=== PATIENT | male | born 1980 | race Caucasian/White ===

== ENCOUNTER 2024-06-29 23:30 | Emergency (ER) | payer SELFPAY ==
[~2024-06-29] VITALS: Ht 165.1 cm; Wt 86.0 kg
[~2024-06-29 23:30] MED LIST: ADVAIR DISK1 IN; ADVAIR DISK1 INH; ALBUTEROL SUL0.083 % IN; HUMALOG KW100 UNIT/M; JARDIANCE25 MG PO; LANTUS SOL100 UNIT/M SC; METFORMIN HCL1000 MG PO; SEROQUEL50 MG PO; STERAPRED DS10 MG PO; SYMBICORT 80-4.5MCG IN; VENTOLIN HFA108 MCG; VENTOLIN HFA108 MCG IN
[2024-06-30] MEDS ORDERED: methylPREDNISolone SODIUM SUCC 125 MG/2 ML SDV IV STA (00:13)
[2024-06-30] MEDS ORDERED: IPRATROPIUM-Albuterol 0.5MG-2.5MG/3 ML NEB ONE (00:15)
[2024-06-30] MEDS ORDERED: ALBUTEROL SULFATE 2.5 MG VIAL IN ONE (00:15)
[2024-06-30 00:31] VITALS: BP 105/71
[2024-06-30 00:58] LABS: BASO% 0.6 % (0-3); EOS% 5.2 % (0-8); HEMATOCRIT 51.5 % (39.0-50.0); HEMOGLOBIN 17.8 g/dl (14.0-18.0); IMMATURE GRANULOCYTES 1.9 % (0.0-5.0); LYMPH% 29.3 % (15-41); MEAN CORPUSCULAR HGB 29.7 pG CALC (26.0-32.0); MEAN CORPUSCULAR HGB CONC 34.6 g/dL CAL (32.0-36.0); MONO% 7.5 % (2-13); NEUT# 7.73 thou/uL (1.82-7.42); NEUT% 55.5 % (42-76); RED BLOOD COUNT 5.99 mill/uL (4.70-6.10); RED CELL DISTRI WIDTH 12.4 % (11.5-15.5)
[2024-06-30 01:01] VITALS: BP 119/71
[2024-06-30] MEDS ORDERED: PREDNISONE50 MG PO (01:21)
[2024-06-30 01:28] VITALS: BP 119/71
== END 2024-06-30 01:28 | disposition home or self-care (01) | DRG 203 ==
LOC: ED 23:30
PROVIDERS: Family Medicine
DX: J45.901 Unspecified asthma with (acute) exacerbation (principal); E11.9 Type 2 diabetes mellitus without complications; Z79.84 Long term (current) use of oral hypoglycemic drugs; Z79.4 Long term (current) use of insulin; Z72.0 Tobacco use; Z20.822 Contact with and (suspected) exposure to COVID-19

== ENCOUNTER 2024-07-06 21:22 | Emergency (ER) | payer SELFPAY ==
[~2024-07-06] VITALS: Ht 165.1 cm; Wt 86.0 kg
[~2024-07-06 21:22] MED LIST changes: +PREDNISONE50 MG PO
[2024-07-06 21:56] LABS: BASO% 0.2 % (0-3); EOS% 0.5 % (0-8); HEMOGLOBIN 17.2 g/dl (14.0-18.0); IMMATURE GRANULOCYTES 0.5 % (0.0-5.0); LYMPH% 18.3 % (15-41); MEAN CELL VOLUME 87.2 fL CALC (80.0-100.0); MEAN CORPUSCULAR HGB 29.4 pG CALC (26.0-32.0); MEAN CORPUSCULAR HGB CONC 33.7 g/dL CAL (32.0-36.0); MONO% 7.7 % (2-13); NEUT# 10.07 thou/uL (1.82-7.42); NEUT% 72.8 % (42-76); RED BLOOD COUNT 5.85 mill/uL (4.70-6.10)
[2024-07-06 22:08] LABS: ALBUMIN 4.7 g/dL (3.2-5.0); ALKALINE PHOSPHATASE 59 u/l (38-126); ANION GAP 16 (6-22 (CALC)); BUN 32 mg/dL (9-20); BUN/CREATININE RATIO 27 (12-20 (CALC)); CARBON DIOXIDE 22 mmol/l (22-30); CHLORIDE 105 mmol/l (95-108); CREATININE 1.2 mg/dL (0.7-1.3); ESTIMATED GFR 76 ML/MIN (>=90 (CALC)); ETHYL ALCOHOL 0 mg/dl (0-30); MAGNESIUM 2.3 mg/dL (1.6-2.3); POTASSIUM 3.9 mmol/l (3.5-5.1); SGOT/AST 43 u/l (17-59); SODIUM 138 mmol/l (137-146); TOTAL PROTEIN 7.7 g/dL (6.3-8.2)
[2024-07-06 22:10] LABS: BILIRUBIN, TOTAL 2.3 mg/dL (0.2-1.3)
[2024-07-06 22:30] LABS: URINE BLOOD DIPSTICK Negative (NEGATIVE); URINE GLUCOSE - DIPSTICK 250 mg/dL (NEGATIVE); URINE KETONE >=160 mg/dL (NEGATIVE); URINE LEUK ESTERASE Negative (NEGATIVE); URINE NITRITE - DIPSTICK Negative (Negative); URINE PH 5.5 (4.5-8.0); URINE PROTEIN - DIPSTICK Negative (NEG-TRACE); URINE SPECIFIC GRAVITY >=1.030; URINE UROBILINOGEN - DIPSTICK 0.2 E.U./dL (0.2)
[2024-07-06 22:31] LABS: URINE COLOR Yellow
[2024-07-07 00:43] VITALS: BP 109/72
== END 2024-07-07 00:24 | DRG 880 ==
LOC: ED 21:22
PROVIDERS: Family Medicine
DX: R45.851 Suicidal ideations (principal); F15.10 Other stimulant abuse, uncomplicated; D72.829 Elevated white blood cell count, unspecified; E11.9 Type 2 diabetes mellitus without complications; J45.909 Unspecified asthma, uncomplicated; Z79.84 Long term (current) use of oral hypoglycemic drugs; Z79.4 Long term (current) use of insulin; Z72.0 Tobacco use
CPT/HCPCS: S0166

== ENCOUNTER 2024-07-18 11:17 | Emergency (ER) | payer SELFPAY ==
[~2024-07-18] VITALS: Ht 165.1 cm; Wt 90.9 kg
[2024-07-18 11:48] LABS: BASO% 0.8 % (0-3); EOS% 2.1 % (0-8); HEMOGLOBIN 17.7 g/dl (14.0-18.0); IMMATURE GRANULOCYTES 0.8 % (0.0-5.0); LYMPH% 28.9 % (15-41); MEAN CELL VOLUME 83.7 fL CALC (80.0-100.0); MEAN CORPUSCULAR HGB 29.1 pG CALC (26.0-32.0); MEAN CORPUSCULAR HGB CONC 34.7 g/dL CAL (32.0-36.0); MONO% 10.3 % (2-13); NEUT# 4.45 thou/uL (1.82-7.42); NEUT% 57.1 % (42-76); RED BLOOD COUNT 6.09 mill/uL (4.70-6.10); RED CELL DISTRI WIDTH 11.7 % (11.5-15.5)
[2024-07-18] MEDS ORDERED: ONDANSETRON HCl 4 MG/2 ML SDV IV ONE (11:50)
[2024-07-18] MEDS ORDERED: SODIUM CHLORIDE 0.9% 1,000 ML IV ONE (11:55)
[2024-07-18 12:11] LABS: ALBUMIN 4.9 g/dL (3.2-5.0); ALKALINE PHOSPHATASE 64 u/l (38-126); ANION GAP 14 (6-22 (CALC)); BILIRUBIN, TOTAL 1.5 mg/dL (0.2-1.3); BUN 21 mg/dL (9-20); BUN/CREATININE RATIO 16 (12-20 (CALC)); CARBON DIOXIDE 24 mmol/l (22-30); CHLORIDE 102 mmol/l (95-108); CREATININE 1.3 mg/dL (0.7-1.3); ESTIMATED GFR 69 ML/MIN (>=90 (CALC)); ETHYL ALCOHOL 0 mg/dl (0-30); POTASSIUM 4.1 mmol/l (3.5-5.1); SGOT/AST 50 u/l (17-59); SODIUM 136 mmol/l (137-146); TOTAL PROTEIN 7.9 g/dL (6.3-8.2)
[2024-07-18 14:28] VITALS: BP 141/103
== END 2024-07-18 14:29 | DRG 880 ==
LOC: ED 11:17
PROVIDERS: Family Medicine
DX: R45.851 Suicidal ideations (principal); E11.9 Type 2 diabetes mellitus without complications; J45.909 Unspecified asthma, uncomplicated; F19.10 Other psychoactive substance abuse, uncomplicated; F25.9 Schizoaffective disorder, unspecified; Z72.0 Tobacco use; Z20.822 Contact with and (suspected) exposure to COVID-19